=== PATIENT | male | born 1970 | race Two or more races ===

== ENCOUNTER 2021-11-15 14:16 | Inpatient (IN) | payer MEDICAID, OTHER ==
[~2021-11-15] VITALS: Ht 185.4 cm; Wt 99.7 kg
[2021-11-15 15:12] LABS: Basophils # (auto) 0 10 ^3/uL (0-0.2); Basophils % (auto) 0.4 % (0.0-2.0); Eosinophils # (auto) 0.1 10 ^3/uL (0-0.8); Eosinophils % (auto) 0.9 % (0.0-7.0); Hematocrit 38.3 % (41.0-53.0); Hemoglobin 13.4 g/dL (13.5-17.5); Lymphocytes # (auto) 2.6 10 ^3/uL (0.4-5.4); Mean Corpuscular Hgb Conc. 35.1 g/dL (32.0-36.0); Mean Corpuscular Volume 85.5 fL (80.0-100.0); Monocytes # (auto) 1.3 10 ^3/uL (0-1.3); Neutrophils # (auto) 7.4 10 ^3/uL (1.6-8.6); Neutrophils % (auto) 64.7 % (37.0-80.0); Nucleated Red Blood Cells % 0.5 %; Red Blood Cells 4.48 10^6/uL (4.5-5.90); Red Cell Distribution Width 13.9 % (11.8-14.3); White Blood Cell 11.5 10^3/uL (4.4-10.8)
[2021-11-15 15:37] LABS: Potassium 3.2 mmol/L (3.5-5.1)
[2021-11-15 15:45] LABS: Albumin 3.6 g/dL (3.4-5.0); BUN/Creatinine Ratio 14.3; Bilirubin, Total 1.5 mg/dL (0.2-1.0); Calcium 9.3 mg/dL (8.5-10.1); Total Protein 7.8 g/dL (6.4-8.2)
[2021-11-15] MEDS ORDERED: SODIUM CHLORIDE 0.9% 1,000 ML IV ONE ×2 (15:45)
[2021-11-15] MEDS ORDERED: KETOROLAC TROMETH 30 MG/ML 1ML VIAL IV ONE (15:45)
[2021-11-15] MEDS ORDERED: TAMSULOSIN HYDROCHLORIDE 0.4 MG CAP PO ONE (15:45)
[2021-11-15] MEDS ORDERED: GLIP2.5T28 PO (18:26)
[2021-11-15] MEDS ORDERED: AML5T PO (18:28)
[2021-11-15] MEDS ORDERED: HYDR12.56 PO (18:29)
[2021-11-15] MEDS ORDERED: METF-370 PO (18:29)
[2021-11-15] MEDS ORDERED: CLOP75TA70 PO (18:30)
[2021-11-15] MEDS ORDERED: ASPI-543 PO (18:31)
[2021-11-15] MEDS ORDERED: LOSA-39 PO (18:32)
[2021-11-15] MEDS ORDERED: ATOR20TA50 PO (18:34)
[2021-11-15] MEDS ORDERED: MORPHINE SULFATE INJECTION 2 MG/ML SYRG IV PRN (19:00)
[2021-11-15] MEDS ORDERED: NITROGLYCERIN 0.4 MG SL TAB SL PRN (19:00)
[2021-11-15] MEDS ORDERED: MORPHINE SULFATE 4 MG/ML SYR/VIAL IV PRN (19:45)
[2021-11-15] MEDS ORDERED: ACETAMINOPHEN 325 MG TAB PO PRN (19:45)
[2021-11-15] MEDS ORDERED: HYDROcodone-ACET 5/325MG TAB PO PRN (19:45)
[2021-11-15] MEDS ORDERED: SODIUM CHLORIDE 0.9% 1,000 ML IV SCH (19:45)
[2021-11-15] MEDS: SODIUM CHLORIDE 0.9% 1,000 ML IV SCH (21:18)
[2021-11-15 21:34] LABS: Creatinine, Urine 90 mg/dL (30.0-125.0); Sodium Urine 13 mmol/L (40-220)
[2021-11-15] MEDS ORDERED: ATORVASTATIN 20 MG TAB PO SCH (22:00)
[2021-11-15 22:30] VITALS: BP 140/75
[2021-11-16 05:00] VITALS: BP 138/79
[2021-11-16 05:02] LABS: Basophils # (auto) 0 10 ^3/uL (0-0.2); Eosinophils # (auto) 0.2 10 ^3/uL (0-0.8); Monocytes # (auto) 0.9 10 ^3/uL (0-1.3); White Blood Cell 9.7 10^3/uL (4.4-10.8)
[2021-11-16 05:04] LABS: Basophils % (auto) 0.3 % (0.0-2.0); Eosinophils % (auto) 2.5 % (0.0-7.0); Hematocrit 31.7 % (41.0-53.0); Hemoglobin 11.6 g/dL (13.5-17.5); Lymphocytes # (auto) 3.5 10 ^3/uL (0.4-5.4); Lymphocytes % (auto) 35.7 % (10.0-50.0); Mean Corpuscular Hemoglobin 30.9 pg (28.0-32.0); Mean Corpuscular Volume 84.3 fL (80.0-100.0); Monocytes % (auto) 9.8 % (0.0-12.0); Neutrophils % (auto) 51.7 % (37.0-80.0); Nucleated Red Blood Cells % 0.2 %; Red Blood Cells 3.76 10^6/uL (4.5-5.90); Red Cell Distribution Width 13.5 % (11.8-14.3)
[2021-11-16 05:08] LABS: Mean Corpuscular Hgb Conc. 36.6 g/dL (32.0-36.0)
[2021-11-16 05:23] LABS: BUN/Creatinine Ratio 21.7; Calcium 8.6 mg/dL (8.5-10.1)
[2021-11-16 05:25] LABS: Total Protein 6.3 g/dL (6.4-8.2)
[2021-11-16 05:32] LABS: Potassium 2.8 mmol/L (3.5-5.1)
[2021-11-16] MEDS: SODIUM CHLORIDE 0.9% 1,000 ML IV SCH (08:00)
[2021-11-16 09:00] VITALS: BP 132/83
[2021-11-16] MEDS ORDERED: ASPirin-EC 81 mg tab PO SCH (10:00)
[2021-11-16] MEDS ORDERED: amLODIPine BESYLATE 5 MG TAB PO SCH ×2 (10:00)
[2021-11-16] MEDS ORDERED: CLOPIDOGREL BISULFATE 75 MG TAB PO SCH (10:00)
[2021-11-16] MEDS: POTASSIUM CHL 10MEQ/50ML 50 ML IV SCH ×2 (11:30→12:30)
[2021-11-16] MEDS ORDERED: POTASSIUM CHL 20 Meq TABLET PO ONE (11:30)
[2021-11-16 12:33] VITALS: BP 136/76
[2021-11-16 14:54] VITALS: BP 136/76
[2021-11-16 16:47] VITALS: BP 136/87
[2021-11-16] MEDS ORDERED: TAMSULOSIN HYDROCHLORIDE 0.4 MG CAP PO SCH (18:00)
== END 2021-11-16 16:30 | disposition home or self-care (01) | DRG 465 ==
LOC: ER 14:16 → OVERFLOW 18:52 → WEST WING 22:30
PROVIDERS: ADMIT Internal Medicine; ATTEND Internal Medicine
DX: N20.2 Calculus of kidney with calculus of ureter (principal); N17.9 Acute kidney failure, unspecified; E11.9 Type 2 diabetes mellitus without complications; E78.5 Hyperlipidemia, unspecified; Z20.822 Contact with and (suspected) exposure to COVID-19; I10 Essential (primary) hypertension; Z79.02 Long term (current) use of antithrombotics/antiplatelets; Z79.82 Long term (current) use of aspirin; Z79.84 Long term (current) use of oral hypoglycemic drugs; Z82.3 Family history of stroke; Z86.73 Personal history of transient ischemic attack (TIA), and cerebral infarction without residual deficits
CPT/HCPCS: 36415; 74176; 76775; 80053; 82570; 83690; 84300; 85025; 87086; 87426; 93005; 96361; 96374; 99291; G0378; J1885

== ENCOUNTER 2022-05-25 14:33 | Emergency (ER) | payer MEDICAID ==
[~2022-05-25] VITALS: Ht 182.9 cm; Wt 92.3 kg
[~2022-05-25 14:33] MED LIST: AML5T PO; ASPI-543 PO; ATOR20TA50 PO; CLOP75TA70 PO; GLIP2.5T28 PO; LOSA-39 PO; METF-370 PO
[2022-05-25] MEDS ORDERED: ACET-1158 PO (16:37)
[2022-05-25] MEDS ORDERED: CYCL-837 PO (16:37)
[2022-05-25 17:22] VITALS: BP 138/67
== END 2022-05-25 17:37 | disposition home or self-care (01) ==
LOC: ER 14:33
DX: S39.012A Strain of muscle, fascia and tendon of lower back, initial encounter (principal); M47.816 Spondylosis without myelopathy or radiculopathy, lumbar region; I10 Essential (primary) hypertension; E11.9 Type 2 diabetes mellitus without complications; Z86.73 Personal history of transient ischemic attack (TIA), and cerebral infarction without residual deficits; Z79.82 Long term (current) use of aspirin; Z79.01 Long term (current) use of anticoagulants; Z79.899 Other long term (current) drug therapy; X58.XXXA Exposure to other specified factors, initial encounter; Y93.89 Activity, other specified; Y92.89 Other specified places as the place of occurrence of the external cause; Y99.8 Other external cause status
CPT/HCPCS: 72100; 93005